=== PATIENT | female | born 1995 | race African-American/Black ===

== ENCOUNTER 2022-09-27 21:10 | Emergency (ER) | payer SELFPAY ==
[2022-09-27 21:38] LABS: Bilirubin Negative (Negative); Blood, Urine Large (Negative); Clarity Cloudy (Clear); Glucose, Urine (Dipstick) Negative (Negative); Ketone, Urine > or equal to 80 mg/dL (Negative); Leukocyte Moderate (Negative); Nitrite Positive (Negative); Protein, Urine (Dipstick) 100 mg/dL (Neg-Trace); Specific Gravity, Urine 1.015 (1.005-1.030); Urobilinogen 0.2 mg/dL (Less than 2)
[2022-09-27 21:40] LABS: Pregnancy Test - Urine (BHCG) Negative (Negative)
[2022-09-27 21:41] LABS: Pregu Control Background? CLEAR/WHITE (CLR/WHITE); Pregu Control Bar Appear? YES (CONTROL BAR); Specific Gravity 1.015 (1.002-1.036)
[2022-09-27 21:44] LABS: Bacteria/HPF 1+ HPF (None Seen); Squamous Epithelial 0-3 HPF (0-3); WBC/HPF Greater than 50 HPF (0-3)
[2022-09-27] MEDS ORDERED: Ondansetron ODT 4 MG TAB ONE (21:44)
[2022-09-27] MEDS ORDERED: Sodium Chloride 0.9% 1,000 ML ONE (21:53)
[2022-09-27 22:05] LABS: #Lymphocytes 0.5 thou/uL (1.20-3.40); #Neutrophils 15.7 thou/uL (1.40-6.50); %Basophils 0.1 % (0.0-1.0); %Lymphocytes 2.8 % (21.0-51.0); %Monocytes 3.3 % (0.0-10.0); %Neutrophils 93.8 % (42.0-75.0); Hemoglobin 10.2 g/dL (12.0-16.0); Manual Diff?? NO; Mean Corpuscular HGB CONC 31.1 g/dL (32.0-36.0); Mean Corpuscular Hemoglobin 25.1 pg (27.0-31.0); Mean Corpuscular Volume 80.6 fl (78.0-98.0); Mean Platelet Volume 6.7 fL (7.4-10.4); Platelet Count 252 10x3/uL (130-400); RBC Distribution Width 14.6 % (11.5-14.5); Red Blood Cell (RBC) Count 4.06 mill/uL (4.20-5.40); White Blood Cell (WBC) Count 16.7 10x3/uL (4.8-10.8)
[2022-09-27 22:06] LABS: #Monocytes 0.6 thou/uL (0.11-0.59)
[2022-09-27 22:22] LABS: ALT (SGPT) 7 U/L (8-55); AST (SGOT) 15 U/L (5-34); Albumin 4.2 g/dL (3.5-5.0); Alkaline Phosphatase 47 U/L (40-110); Anion Gap 16 mmol/L (10-20); BUN (Urea Nitrogen) 6 mg/dL (7.0-18.7); Calc. Creatinine Clearance 0 mL/min (70-130); Carbon Dioxide 19 mmol/L (22-29); Chloride 103 mmol/L (98-107); Estimated GFR 116; Globulin 3.2 g/dL (2.4-3.5); Glucose 106 mg/dL (70-105); Protein, Total 7.4 g/dL (6.0-8.3); Sodium 135 mmol/L (136-145)
[2022-09-27] MEDS ORDERED: cefTRIAXone (ROCEPHIN) 1 GM VIAL ONE (22:43)
== END 2022-09-27 23:06 | disposition home or self-care (01) ==
LOC: NAV ERS 21:10
DX: N39.0 Urinary tract infection, site not specified (principal); R11.2 Nausea with vomiting, unspecified; E86.0 Dehydration
CPT/HCPCS: 80053; 81003; 81015; 81025; 85025; 96361; 96374; J0696; J7050; Q0162

== ENCOUNTER 2023-11-01 21:25 | Emergency (ER) | payer SELFPAY ==
[2023-11-01] MEDS ORDERED: Penicillin V Potassium 250 MG TAB ONE (21:55)
[2023-11-01] MEDS ORDERED: Acetaminophen/Codeine 30-300mg Tablet ONE (21:57)
== END 2023-11-01 22:10 | disposition home or self-care (01) ==
LOC: NAV ERS 21:25
DX: K04.4 Acute apical periodontitis of pulpal origin (principal); K02.9 Dental caries, unspecified
CPT/HCPCS: 99282